=== PATIENT | female | born 1990 | race Caucasian/White ===

== ENCOUNTER 2017-03-29 08:03 | Emergency (ER) | payer OTHER ==
[2017-03-29 08:08] VITALS: TEMP 98; BMI 20.3
[2017-03-29] MEDS ORDERED: ACETAMINOPHEN 325 MG TABLET (FP) PO ONE (08:40)
[2017-03-29] MEDS ORDERED: ACETAMINOPHEN 325 MG TABLET (FP) ONE (08:55)
--- NOTE | 2017-03-29 09:02 | PDOC ---
History of Present Illness - General Chief Complaint: Vaginal Bleeding Stated Complaint: 6 WEEKS preg PAIN Time Seen by Provider: 03/29/17 08:27 History Source: Patient Exam Limitations: No Limitations - History of Present Illness Travel History: No Initial Comments: 03/29/17 08:51 20-year-old female currently 6 weeks presents with vaginal spotting for the past week.patient states is approximately 6 weeks based on her LMP and states had went to [facility] last who performed an ultrasound and saw intrauterine and told to follow-up with her [facility]. Patient currently complaining of suprapubic cramping along with brownish spotting since this morning. Patient denies urinary complaints fever, chills or nausea. Timing/Duration: reports: intermittent Quality: reports: mild, cramping Abdominal Pain Onset Location: reports: suprapubic Pain Radiation: reports: no radiation Activities at Onset: reports: none Aggravating Factors: improves with: None Alleviating Factors: improves with: None Past History - Travel Traveled outside of the country in the last 30 days: No - Past Medical History Allergies/Adverse Reactions: Allergies Allergy/AdvReac Type Severity Reaction Status Date / Time No Known Allergies Allergy Verified 03/29/17 08:05 Home Medications: Ambulatory Orders NK [No Known Home Medication] 03/29/17 COPD: No - Reproductive History Is Patient Now?: Yes (#): 2 Para: 1 Cervical CA: No Dysfunctional Uterine Bleeding: No Ectopic : No Endometrial CA: No Polycystic Ovaries: No Therapeutic (s) & number: No Tubal Ligation: No Spontaneous : 0 - Suicide/Smoking/Psychosocial Hx Smoking History: Never smoked Have you smoked in the past 12 months: No Information on smoking cessation initiated: No Hx Alcohol Use: No Drug/Substance Use Hx: No Substance Use Type: None Patient Lives Alone: No Lives with/in: parents Review of Systems - Review of Systems Able to Perform ROS?: Yes Constitutional: No: Symptoms Reported HEENTM: No: Symptoms Reported Respiratory: No: Symptoms reported Cardiac (ROS): No: Symptoms Reported ABD/GI: Yes: Abdominal cramping : Yes: Discharge (brownish discharge) Musculoskeletal: No: Symptoms Reported Integumentary: No: Symptoms Reported Neurological: No: Symptoms reported *Physical Exam - Vital Signs Last Vital Signs Temp Pulse Resp BP Pulse Ox 98.0 F 88 18 118/69 100 03/29/17 08:06 03/29/17 08:06 03/29/17 08:06 03/29/17 08:06 03/29/17 08:06 - Physical Exam General Appearance: Yes: Nourished, Appropriately Dressed. No: Apparent Distress HEENT: negative: Pale Conjunctivae Respiratory/Chest: positive: Lungs Clear, Normal Breath Sounds. negative: Respiratory Distress, Accessory Muscle Use Cardiovascular: positive: Regular Rhythm, Regular Rate. negative: Murmur Female Pelvic Exam: positive: normal external exam, normal adnexa, vaginal bleeding (scant pink no clots). negative: cervical os closed, adnexal tenderness Gastrointestinal/Abdominal: positive: Normal Bowel Sounds, Soft, Tenderness ( mid suprapubic) Musculoskeletal: negative: CVA Tenderness Integumentary: positive: Normal Color, Warm, Moist Neurologic: positive: Motor Strength 5/5 (ambulatory) ED Treatment Course - LABORATORY CBC & Chemistry Diagram: 03/29/17 08:34 03/29/17 08:34 - RADIOLOGY Radiology Studies Ordered: Category Date Time Status <14WKS US [US] Stat Ultrasound 03/29/17 08:33 Ordered Medical Decision Making - Medical Decision Making 03/29/17 09:07 Patient here for evaluation of mid suprapubic cramping along with spotting for the past week. Patient had an ultrasound that showed intrauterine estimating her to be 6 weeks . Patient has no other complaints at this time. Patient ordered for labs including beta hCG, urine urine culture Tylenol and ultrasound. 03/29/17 11:13 Laboratory Tests 03/29/17 03/29/17 03/29/17 08:34 08:34 08:34 WBC 5.7 Hgb 12.6 Hct 38.7 Plt Count 219 Neutrophils % 54.1 Sodium 138 Potassium 4.1 Chloride 107 Carbon Dioxide 24 Anion Gap 7 L BUN 13 Creatinine 0.7 Random Glucose 86 Calcium 8.2 L Total Bilirubin 0.7 AST 12 L Albumin 3.2 L Beta HCG, Quant 62678.3 Urine Blood 2+ H Urine Urobilinogen Negative Urine WBC (Auto) 1 Urine RBC (Auto) 1 Blood Type 03/29/17 08:34 WBC Hgb Hct Plt Count Neutrophils % Sodium Potassium Chloride Carbon Dioxide Anion Gap BUN Creatinine Random Glucose Calcium Total Bilirubin AST Albumin Beta HCG, Quant Urine Blood Urine Urobilinogen Urine WBC (Auto) Urine RBC (Auto) Blood Type A POSITIVE Ultrasound shows an early live intrauterine estimated at 7 weeks 4 days. Both ovaries appear unremarkable with normal vascular flow. Patient to be discharged home with referral to [facility]. *DC/Admit/Observation/Transfer Diagnosis at time of Disposition: Vaginal bleeding in - Discharge Dispostion Disposition: HOME Condition at time of disposition: Good - Referrals Referrals: Adriel Arreola MD [Staff Physician] - - Patient Instructions Printed Discharge Instructions: DI for Vaginal Bleeding During Additional Instructions: Please follow up with referred [facility]. Please drink plenty of fluids. May take Tylenol for discomfort. Please return to ED if symptoms worsen. - Post Discharge Activity
[2017-03-29 09:53] LABS: BASO % 0.5 % (0-2.0); EOS # 0.2 # (0-4.5); EOS % 2.9 % (0-4.5); LYMPH # 2.1 (8-40); MCH 28.8 pg (25.7-33.7); MCHC 32.7 g/dl (32.0-36.0); MEAN PLT VOLUME 8.8 fl (7.5-11.1); MONO # 0.4 # (3.8-10.2); NEUT # 3.1 # (42.8-82.8); NEUT % 54.1 % (42.8-82.8); PLATELET COUNT 219 K/MM3 (134-434); RDW 13.1 % (11.6-15.6); WHITE BLOOD COUNT 5.7 K/mm3 (4.0-10.0)
[2017-03-29 10:02] LABS: URINE APPEARANCE SLCLOUDY; URINE BILIRUBIN NEGATIVE (NEGATIVE); URINE BLOOD 2+ (NEGATIVE); URINE COLOR LTYELLOW; URINE GLUCOSE (UA) NEGATIVE (NEGATIVE); URINE KETONE NEGATIVE (NEGATIVE); URINE LEUK ESTERASE TRACE (NEGATIVE); URINE NITRITE NEGATIVE (NEGATIVE); URINE PROTEIN NEGATIVE (NEGATIVE); URINE UROBILINOGEN NEGATIVE mg/dL (0.2-1.0)
[2017-03-29 10:09] LABS: ALBUMIN 3.2 g/dl (3.4-5.0); ANION GAP 7 (8-16); BILIRUBIN,TOTAL 0.7 mg/dL (0.2-1.0); CALCIUM 8.2 mg/dL (8.5-10.1); CO2 24 mmol/L (21-32); CREATININE 0.7 mg/dL (0.55-1.02); GLUCOSE,RANDOM 86 mg/dL (74-106); SGOT/AST 12 U/L (15-37); SGPT/ALT 18 U/L (12-78); TOT PROT 6.8 g/dl (6.4-8.2)
[2017-03-29 10:21] LABS: URINE BACTERIA RARE /hpf (NONE SEEN); URINE MUCUS RARE; URINE RBC 1 /hpf (0-3); URINE WBC 1 /hpf (3-5)
[2017-03-29 10:24] LABS: ALK PHOS 73 U/L (45-117)
[2017-03-29 11:36] VITALS: BP 101/54; PULSE 70
[2017-03-29 14:05] LABS: URINE LEUK ESTERASE TRACE (NEGATIVE)
== END 2017-03-29 11:36 | disposition home or self-care (01) ==
LOC: JER 08:03 → EDBD 08:03 → JER 11:36
DX: O26.891 Other specified pregnancy related conditions, first trimester (principal); O20.8 Other hemorrhage in early pregnancy; Z3A.01 Less than 8 weeks gestation of pregnancy
CPT/HCPCS: 36415; 76801-TC; 80053; 81003; 81015; 84702; 85025; 86850; 86900; 86901; 87086; 99284-25